=== PATIENT | male | born 1990 | race African-American/Black ===

== ENCOUNTER 2023-02-05 08:11 | Emergency (ER) | payer MEDICAID, OTHER ==
[~2023-02-05] VITALS: Ht 180.3 cm; Wt 102.2 kg
[2023-02-05] MEDS ORDERED: IBUP-1456 PO (09:09)
[2023-02-05] MEDS ORDERED: CEPH500C PO (09:09)
[2023-02-05 09:11] VITALS: BP 136/80; PULSE 82; RESP 16; TEMP 97.1; O2SAT 99
== END 2023-02-05 09:27 | disposition home or self-care (01) ==
LOC: ER 08:11
DX: S61.210A Laceration without foreign body of right index finger without damage to nail, initial encounter (principal); W26.8XXA Contact with other sharp object(s), not elsewhere classified, initial encounter; Y93.89 Activity, other specified; Y92.89 Other specified places as the place of occurrence of the external cause; Y99.8 Other external cause status
CPT/HCPCS: 12001

== ENCOUNTER 2023-02-13 17:42 | Emergency (ER) | payer MEDICAID ==
[~2023-02-13] VITALS: Ht 180.3 cm; Wt 105.4 kg
[~2023-02-13 17:42] MED LIST: CEPH500C PO; IBUP-1456 PO
[2023-02-13 17:50] VITALS: BP 148/77; PULSE 90; RESP 16; TEMP 97.6; O2SAT 100
[2023-02-13] MEDS ORDERED: MUPI2OIN2 EX (18:24)
[2023-02-13] MEDS ORDERED: IBUP1TAB5 PO (18:24)
[2023-02-13] MEDS ORDERED: DOXY-346 PO (18:24)
[2023-02-13] MEDS ORDERED: HYDROcodone-ACET 5/325MG TAB PO ONE (18:30)
[2023-02-13] MEDS ORDERED: DOXYCYCLINE 100 MG TAB/CAP PO ONE (18:30)
[2023-02-13] MEDS ORDERED: NEOMYCIN-BACITRACIN-POLYM UNITDOSE PKG TOP OINT TOP ONE (18:30)
== END 2023-02-13 19:10 | disposition home or self-care (01) ==
LOC: ER 17:42
DX: L08.9 Local infection of the skin and subcutaneous tissue, unspecified (principal); Z48.02 Encounter for removal of sutures